=== PATIENT | female | born 1985 | race Caucasian/White ===

== ENCOUNTER 2018-09-20 08:25 | Inpatient (IN) | payer SELFPAY ==
[2018-09-21] MEDS ORDERED: miSOPROStol 100 MCG TAB ONE (16:19)
[2018-09-21] MEDS ORDERED: METHYLERGONOVINE 0.2MG/ML AMP IM PRN (16:22)
[2018-09-21] MEDS ORDERED: PROMETHAZINE 25 MG/ML VIAL IM PRN (16:22)
[2018-09-21] MEDS ORDERED: MEPERIDINE HCL 25 MG/0.5 ML IV PRN (16:22)
[2018-09-21] MEDS ORDERED: BUTORPHANOL 1 MG/ML INJ IV PRN (16:22)
[2018-09-21] MEDS ORDERED: Ringers Lactate 1,000 ML IV PRN (16:22)
[2018-09-21] MEDS ORDERED: CARBOPROST TROME 250 MCG/ML IM PRN (16:22)
[2018-09-21 16:53] LABS: RPR Titer ND
[2018-09-21 16:57] LABS: Urine Appearance CLOUDY; Urine Bilirubin NEGATIVE (NEG); Urine Blood TRACE (NEG); Urine Color YELLOW; Urine Glucose NEGATIVE (NEG); Urine Protein NEGATIVE (NEG); Urine Specific Gravity >=1.030 (1.005-1.030); Urine pH 5.5 (5.0-7.0)
[2018-09-21 16:58] LABS: Absolute Lymphocytes (CBC) 2.1 K/uL (0.7-4.9); Absolute Monocytes 0.8 K/uL (0.1-1.3); Absolute Neutrophil 7.4 K/uL (1.8-8.0); Basophils % 0.4 % (0-1.3); Eosinophils % 0.8 % (0-4.4); Hematocrit 33.6 % (36.0-45.0); MPV 9.8 fL (7.6-11.3); Monocytes % 7.4 % (3.3-12.3); RBC Red Blood Cell Count 3.83 M/uL (3.86-4.86)
[2018-09-21] MEDS ORDERED: Ringers Lactate 1,000 ML IV SCH (17:00)
[2018-09-21] MEDS ORDERED: miSOPROStol 100 MCG TAB VAG SCH (17:00)
[2018-09-21 17:07] LABS: Urine Microscopic Reflex ORDER UMIC
[2018-09-21 17:44] VITALS: BMI 42.1
[2018-09-21 17:50] LABS: Urine Bacteria 20-50 /HPF (<20); Urine RBC <5 /HPF (NONE SEEN)
[2018-09-21 17:51] LABS: Urine Culture Reflex Order NOT NEEDED
--- NOTE | 2018-09-21 21:53 | PREOPHP ---
Date of Admission: 09/21/2018 A 33-year-old, 2, para 1, at 40 weeks and 1 day, possibly 40 weeks and 4 days, for Cytotec in duction. Full discussion about Cytotec, the risks and possible complications. The patient is 1.5 cm . Baby is -1 station, applied to the cervix. FHT is normal, reactive. She is beta strep negative, Rh positive, and immune to Rubella. Initial blood pressure is 146, but the patient is a little bit o n the nervous side. I do not think she has preeclampsia. This will be watched carefully. 50 mcg Cy totec half tablet inserted without difficulty. Full labor and delivery and Cytotec talk given. MOLINA/NANCI Voice ID: [id number]
[2018-09-22 01:12] LABS: RPR (Rapid Plasma Reagin) NON-REACT (NON-REACT)
[2018-09-22] MEDS ORDERED: OXYTOCIN/LR 20 UNIT/1,000 ML BAG IV SCH ×2 (08:00→16:00)
--- NOTE | 2018-09-22 11:51 | PN ---
The patient is nate regularly. The baby looks good. Vital signs are in a reasonable range. No suspicion of preeclampsia. The patient is now 1-/2 almost to 2, 60% to 70% effaced, vertex, well applied. Rupture of membranes, clear fluid. The patient has a bloody show prior to rupture of memb ranes. Nothing dramatic. Anticipate more rapid progress at this point. Contractions are very mild at this point. We will wait until 8 o'clock and then start Pitocin. Anticipate delivery some time l ater today. Full discussion with the patient and . MOLINA/NANCI Voice ID: [id number] Report ID: [id number]
[2018-09-22] MEDS ORDERED: LIDOCAINE 2% INJ, 20 mL 20 ML ONE (14:15)
[2018-09-22] MEDS ORDERED: BISACODYL 10 MG RECTAL SUPP RECT PRN (15:32)
[2018-09-22] MEDS ORDERED: ACETAMINOPHEN 500 MG TAB PO PRN (15:32)
[2018-09-22] MEDS ORDERED: DIPHENHYDRAMINE 25 MG TAB/CAP PO PRN (15:32)
[2018-09-22] MEDS ORDERED: Oxycodone HCl/Acetaminophen 1 TAB TAB PO PRN ×2 (15:32)
[2018-09-22] MEDS ORDERED: IBUPROFEN 200 MG TAB PO PRN (15:32)
[2018-09-22] MEDS ORDERED: DOCUSATE NA/SENNA CONC 1 TAB PO PRN (15:32)
[2018-09-22] MEDS ORDERED: Ringers Lactate 1,000 ML IV ONE (18:11)
--- NOTE | 2018-09-22 18:57 | PN ---
The patient is on 16 milliunits of Pitocin. Baby looks good. She is nate every 2 to 3 minute s, having back discomfort. Baby is I think occiput posterior. She will start doing pelvic rocks. T he patient is now 4 cm, 70% effaced, vertex, -1 station. I think, we are on the verge of starting to make more rapid progress. MOLINA/NANCI Voice ID: [id number] Report ID: [id number]
--- NOTE | 2018-09-22 18:57 | PN ---
The patient is now 5.5 cm. The anterior cervical lip is slightly edematous. Baby is almost 0 statio n. We are starting to get signs of head compression, but otherwise FHT still looks good. She is on 16 milliunits of Pitocin, going natural using Lamaze breathing techniques to best advantage. Anticip ate delivery fairly soon. MOLINA/MODL Voice ID: [id number] Report ID: [id number]
--- NOTE | 2018-09-23 02:39 | OP ---
Surgeon: Nicolas Figueroa MD A 33-year-old, 3, para 1, at 40 weeks 4 days, had Cytotec inserted x3. At that point was the n approximately 1.5 to 2 cm, ruptured membranes, clear fluid. During the day, the patient received n o analgesics and used Lamaze breathing techniques to best advantage. Had a pattern and second stage of labor comparable to a cord pattern and indeed at time of delivery, nuchal cord x2 was noted. Seco nd stage is only 10 minutes or thereabouts. Male in the 8-1/2 to 9 pounds range, Apgars 9 and 9. No episiotomy. Small first-degree laceration repaired with 2-0 chromic under local infiltration , running locked, and then 2 [id number] stitches for complete hemostasis. Schultze delivery of the placenta, which was inspected and noted to be heavily calcified but intact and normal. Estimated blood loss 400 cc. The patient is Rh positive, immune to Rubella. Negative beta strep screen. Buffy erated all procedures well. Final Diagnosis: Term intrauterine . Cytotec for cervical ripening. Labor induction. Vag inal delivery. Nuchal cord x2. NBC/MODL Voice ID: [id number] Report ID: [id number]
--- NOTE | 2018-09-23 12:13 | DS ---
Hospital Course: A 33-year-old, 3, para 1, 40 weeks, 5 days, on delivery at 40 weeks 4 days. had Cytotec 50 mcg inserted intravaginally x3 doses 6 hours apart, 7:15 approximately yesterday mor lizet rupture of membranes at 1-1/2 to 2 cm. The patient went to an active labor pattern. After 6 cm , went to complete and on the perineum within the next hour and a half. Second stage of only 10-15 m inutes. Spontaneous vaginal delivery of an 8-pound, 9-ounce male infant. Nuchal cord x2 tightly. A pgars 9 and 9. Small first degree laceration sutured with 2-0 chromic after local infiltration. Jennifer ultze delivery of the placenta, which was inspected and noted to be intact and normal. Heavily calci fied, but otherwise normal. Estimated blood loss 400 cc. Rh positive, immune to Rubella. Negative beta-strep screen. ; afebrile, ambulating and voiding. Lochia is normal. She will be dis missed later today to report back to my office in 6 weeks for followup, to report any temperature carlyn vation of 100 degrees or greater, severe pain, heavy bleeding, or any other type of abnormalities. D ismissed with tramadol, although she may elect to take Motrin instead. She has been open offered Tda p and says she will get this prior to dismissal. Final Diagnoses: Term intrauterine 40 weeks 4 days, Cytotec administration, 40 weeks 5 day s, vaginal delivery. Nuchal cord x2. Tdap offered. MOLINA/NANCI Voice ID: [id number] Report ID: [id number]
[2018-09-23 20:39] VITALS: BP 144/73; TEMP 97.4
[2018-09-23] MEDS ORDERED: Tdap (Diph,Pertuss(Acell),Tet Vac) 0.5 ML SYR IMVAC ONE (20:50)
[2018-09-25 19:45] LABS: HBsAG Nonreactive (Nonreactive)
== END 2018-09-23 21:35 | disposition home or self-care (01) | DRG 807 ==
LOC: 2ND-WC 09-21 15:35
PROVIDERS: ADMIT Specialist; ATTEND Specialist
PROC: 10E0XZZ Delivery of Products of Conception, External Approach (ICD-10-PCS; principal; 2018-09-22)
PROC: 3E0P7VZ Introduction of Hormone into Female Reproductive, Via Natural or Artificial Opening (ICD-10-PCS; 2018-09-22)
PROC: 3E033VJ Introduction of Other Hormone into Peripheral Vein, Percutaneous Approach (ICD-10-PCS; 2018-09-22)
PROC: 10907ZC Drainage of Amniotic Fluid, Therapeutic from Products of Conception, Via Natural or Artificial Opening (ICD-10-PCS; 2018-09-22)
PROC: 0HQ9XZZ Repair Perineum Skin, External Approach (ICD-10-PCS; 2018-09-22)
DX: O69.81X0 Labor and delivery complicated by cord around neck, without compression, not applicable or unspecified (principal); Z37.0 Single live birth; O70.0 First degree perineal laceration during delivery; Z3A.40 40 weeks gestation of pregnancy
CPT/HCPCS: 36415; 81003; 81015; 85025; 86592; 86850; 86900; 86901; 87340; 90715; J2590